=== PATIENT | male | born 1995 | race Caucasian/White ===

== ENCOUNTER 2023-06-22 13:37 | Emergency (ER) | payer OTHER ==
[~2023-06-22] VITALS: Ht 177.8 cm; Wt 90.7 kg
[2023-06-22 14:15] VITALS: BP 150/81; PULSE 81; RESP 17; TEMP 97.7; O2SAT 98
--- NOTE | 2023-06-22 15:21 | NUR ---
VOLAR SPLINT APPLIED TO R WRIST.
--- NOTE | 2023-06-22 15:23 | NUR ---
Patient discharged with v/s stable. Written and verbal after care instructions given and explained. Patient verbalized understanding. Ambulatory with steady gait. All questions addressed prior to discharge. Advised to follow up with PMD.
== END 2023-06-22 15:23 | disposition home or self-care (01) ==
LOC: MED 13:37
DX: S63.591A Other specified sprain of right wrist, initial encounter (principal); W22.8XXA Striking against or struck by other objects, initial encounter; Y93.89 Activity, other specified; Y92.89 Other specified places as the place of occurrence of the external cause; Y99.8 Other external cause status
CPT/HCPCS: 73110; 99283